=== PATIENT | male | born 1940 | race Caucasian/White ===

== ENCOUNTER 2019-07-09 18:00 | Inpatient (IN) | payer MEDICARE, MEDICAID ==
[~2019-07-09] VITALS: Ht 180.3 cm; Wt 89.9 kg
[~2019-07-09 18:00] MED LIST: BACL20TA PO; CALC-729 PO; CELE-193 PO; CHOL10002 PO; DOCU-148 PO; HYDR-3968 PO; MAGN500C16 PO; PHEN100C4 PO; PREG50CA PO
[2019-07-09] MEDS ORDERED: normal saline 1000ML IV soln IVB ONE (18:20)
[2019-07-09] MEDS ORDERED: magnesium 2GM in 50ml NS 50 ML IV ONE (18:25)
[2019-07-09] MEDS ORDERED: diltiazem 5mg/ml 5ml inj. IV ONE ×2 (18:25→18:50)
[2019-07-09 18:30] LABS: BASOPHILS % (AUTO) 0.1 % (0-1); EOSINOPHILS % (AUTO) 0 % (0-6); HEMATOCRIT 29.3 % (42.0-52.0); HEMOGLOBIN 9.4 g/dl (14.0-17.9); LYMPHOCYTES # (AUTO) 0.7 X10'3 (1.1-4.8); LYMPHOCYTES % (AUTO) 6.2 % (21-51); MEAN CORPUSCULAR HEMOGLOBIN 27.4 PG (27.0-31.0); MEAN CORPUSCULAR HGB CONC 32.2 g/dL (33.0-36.5); MEAN CORPUSCULAR VOLUME 85.2 FL (78-98); MEAN PLATELET VOLUME 7.3 FL (7.4-10.4); MONOCYTES # (AUTO) 0.4 X10'3 (0-0.9); NEUTROPHILS % (AUTO) 89.7 % (42-75); PLATELET COUNT 224 X10'3 (140-440); RED BLOOD COUNT 3.43 X10'6 (4.70-6.10); RED CELL DISTRIBUTION WIDTH 19.2 % (11.5-14.5); WHITE BLOOD COUNT 11.2 X10'3 (4.5-11.0)
[2019-07-09 18:37] LABS: PARTIAL THROMBOPLASTIN TIME 28 SECONDS (22-32)
[2019-07-09 18:43] LABS: ALANINE AMINOTRANSFERASE 34 U/L (12-78); ALBUMIN 2.8 G/DL (3.4-5.0); ALBUMIN/GLOBULIN RATIO 0.8 (1.1-1.5); ANION GAP 19 (8-16); ASPARTATE AMINO TRANSFERASE 51 U/L (10-37); BILIRUBIN,TOTAL 0.4 MG/DL (0.1-1.0); BLOOD UREA NITROGEN 16 MG/DL (7-18); BUN/CREATININE RATIO 7.4 (5.4-32.0); CALCIUM 7.6 MG/DL (8.5-10.1); CHLORIDE 104 MMOL/L (99-107); CREATININE 2.15 MG/DL (0.60-1.10); GLUCOSE 293 MG/DL (70-104); SODIUM 138 MMOL/L (135-145); TOTAL PROTEIN 6.4 G/DL (6.4-8.2); eGFR 30 ML/MIN
[2019-07-09 18:49] LABS: POTASSIUM 4.4 MMOL/L (3.5-5.1)
[2019-07-09 18:54] LABS: ALKALINE PHOSPHATASE 63 IU/L (46-116)
--- NOTE | 2019-07-09 18:54 | NUR ---
Repeat EKG performed to attempt to determine patient's rhythm. Spoke to Dr. Martinez who orders additional cardizem for the patient.
[2019-07-09 19:10] LABS: MAGNESIUM 1.9 MG/DL (1.5-2.4); PHOSPHORUS 4.3 MG/DL (2.3-4.5)
--- NOTE | 2019-07-09 19:17 | NUR ---
pt to ct
--- NOTE | 2019-07-09 19:25 | NUR ---
NOTIFIED [facility] OF BLADDER TEMP AT 102
[2019-07-09 19:27] LABS: UA COLLECTION TYPE OTHER
[2019-07-09 19:28] LABS: CLARITY,URINE CLEAR (Clear); COLOR,URINE YELLOW (Yellow); GLUCOSE, URINE 250 mg/dl (Neg); KETONES,URINE NEGATIVE (Neg); LEUKOCYTE ESTERASE ,URINE NEGATIVE (Neg); NITRITES, URINE NEGATIVE (Neg); OCCULT BLOOD,URINE MODERATE (Neg); PROTEIN,URINE 30 mg/dl (Neg); UROBILINOGEN,URINE 0.2 E.U/dL (0.2-1.0)
[2019-07-09 19:35] LABS: BACTERIA,URINE NONE SEEN /HPF (Neg); RBC,URINE 0-2 /HPF (0-2); WBC,URINE 0-4 /HPF (0-4)
[2019-07-09 19:36] LABS: CELLULAR CAST 0-4 /LPF (NEGATIVE); FINE GRANULAR CAST 0-3 /LPF (NEGATIVE); MUCUS STRANDS NONE SEEN /LPF (Neg); SQUAMOUS EPITHELIAL CELL,UR NONE SEEN /LPF (FEW)
[2019-07-09] MEDS ORDERED: vancomycin/NS 1 GM ADD-VANTAGE 250 ML IV ONE (19:45)
[2019-07-09] MEDS ORDERED: piperacillin/tazo 3.375gm/50ml 50 ML IV ONE (19:45)
--- NOTE | 2019-07-09 19:48 | NUR ---
Spoke to Dr. Martinez regarding newly discovered bladder temperature. 650 rectal tylenol ordered.
[2019-07-09] MEDS ORDERED: acetaminophen 325mg rectal suppository RC ONE (19:50)
[2019-07-09] MEDS ORDERED: acetaminophen 650mg rectal suppository RC ONE (20:05)
--- NOTE | 2019-07-09 20:31 | NUR ---
BLOOD CONSENT FORM SIGNED BY PT AND PLACED ON CHART, O[facility]FS ELECTRONIC CONSENT SIGNED.
[2019-07-09] MEDS ORDERED: potassium Cl 20mEq/100mL bag 100 ML IV PRN ×2 (20:35)
[2019-07-09] MEDS ORDERED: acetaminophen 650mg rectal suppository RC PRN (20:35)
[2019-07-09] MEDS ORDERED: tranexamic acid inj. 1,000 MG in normal saline 100ml IV soln 100 ML IV ONE (20:35)
[2019-07-09] MEDS ORDERED: ondansetron/PF 4mg/2ml inj IV PRN (20:35)
[2019-07-09] MEDS: normal saline 1000ml 1,000 ML IV SCH (21:00)
[2019-07-09 21:08] LABS: HEMATOCRIT 26.7 % (42.0-52.0); HEMOGLOBIN 8.8 g/dl (14.0-17.9); MEAN CORPUSCULAR HEMOGLOBIN 27.4 PG (27.0-31.0); MEAN CORPUSCULAR VOLUME 82.8 FL (78-98); MEAN PLATELET VOLUME 6.8 FL (7.4-10.4); PLATELET COUNT 184 X10'3 (140-440); RED BLOOD COUNT 3.22 X10'6 (4.70-6.10); RED CELL DISTRIBUTION WIDTH 18.9 % (11.5-14.5); WHITE BLOOD COUNT 9.3 X10'3 (4.5-11.0)
[2019-07-09 21:12] LABS: ALANINE AMINOTRANSFERASE 43 U/L (12-78); ALBUMIN 2.7 G/DL (3.4-5.0); ALBUMIN/GLOBULIN RATIO 0.8 (1.1-1.5); ALKALINE PHOSPHATASE 63 IU/L (46-116); ANION GAP 16 (8-16); ASPARTATE AMINO TRANSFERASE 58 U/L (10-37); BILIRUBIN,TOTAL 0.5 MG/DL (0.1-1.0); BLOOD UREA NITROGEN 17 MG/DL (7-18); BUN/CREATININE RATIO 8.9 (5.4-32.0); CALCIUM 7.2 MG/DL (8.5-10.1); CHLORIDE 109 MMOL/L (99-107); CREATININE 1.92 MG/DL (0.60-1.10); GLUCOSE 192 MG/DL (70-104); POTASSIUM 3.9 MMOL/L (3.5-5.1); SODIUM 140 MMOL/L (135-145); TOTAL CARBON DIOXIDE 15.3 MMOL/L (24-32); TOTAL PROTEIN 6.1 G/DL (6.4-8.2); eGFR 34 ML/MIN
--- NOTE | 2019-07-09 21:20 | NUR ---
Patient in room CICU 2013. I have received report from ER and had the opportunity to ask questions and assume patient care. Awaiting patient arrival.
[2019-07-09 21:25] VITALS: BP 118/65
--- NOTE | 2019-07-09 21:25 | NUR ---
Pt arrived from ER via gurney to ICU room 2013 awake & alert. On Oxygen at 4L. Right IJ quad lumen central line with vanco infusing & NS TKO. 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
[2019-07-09 21:30] VITALS: BP 126/63
[2019-07-09 21:45] VITALS: BP 134/66
[2019-07-09 22:00] VITALS: BP 103/51
[2019-07-09] MEDS ORDERED: normal saline 1000ml 1,000 ML IVB ONE (22:10)
[2019-07-09] MEDS ORDERED: normal saline 1000ml 1,000 ML IV PRN (22:11)
[2019-07-09 22:15] VITALS: BP 101/56
[2019-07-09 22:30] VITALS: BP 131/69
--- NOTE | 2019-07-09 22:30 | NUR ---
Blood transfusion started UNIT # [id number] B positive.
--- NOTE | 2019-07-09 22:42 | NUR ---
Pt placed on transport monitor & taken to interventional radiology.
[2019-07-09] MEDS ORDERED: fentaNYL/PF 50MCG/1 ML 2ML syringe ONE ×2 (22:57→23:44)
[2019-07-09] MEDS ORDERED: midazolam 2 mg/2 ml injection ONE ×2 (22:57→23:44)
[2019-07-09] MEDS ORDERED: LIDOcaine 1%/PF 5ML 10 MG/ML VIAL ONE (22:57)
[2019-07-09] MEDS ORDERED: heparin 1,000 UNITS/NS 500ml 500 ML ONE (22:57)
[2019-07-09] MEDS ORDERED: iohexol 300mg/ml 100ml inj. ONE (22:58)
[2019-07-10] VITALS (29 sets, daily range): BP systolic 125–175; BP diastolic 61–91
[2019-07-10] MEDS ORDERED: heparin 1,000 UNITS/NS 500ml 500 ML ONE (00:05)
[2019-07-10] MEDS ORDERED: fentaNYL/PF 50MCG/1 ML 2ML syringe ONE (00:19)
[2019-07-10] MEDS ORDERED: midazolam 2 mg/2 ml injection ONE (00:19)
--- NOTE | 2019-07-10 01:02 | NUR ---
Pt back from Interventional radiology. Right groin dressing is clean & dry.
[2019-07-10] MEDS: HYDROmorphone 1 mg/ml syringe IV PRN ×5 (01:19→23:09)
[2019-07-10] MEDS: normal saline 1000ml 1,000 ML IV SCH ×2 (01:24→09:03)
[2019-07-10 01:27] LABS: HEMATOCRIT 29.5 % (42.0-52.0); HEMOGLOBIN 9.9 g/dl (14.0-17.9); MEAN CORPUSCULAR HEMOGLOBIN 28.3 PG (27.0-31.0); MEAN CORPUSCULAR HGB CONC 33.4 g/dL (33.0-36.5); MEAN CORPUSCULAR VOLUME 84.7 FL (78-98); MEAN PLATELET VOLUME 6.9 FL (7.4-10.4); PLATELET COUNT 162 X10'3 (140-440); RED BLOOD COUNT 3.49 X10'6 (4.70-6.10); RED CELL DISTRIBUTION WIDTH 18.5 % (11.5-14.5); WHITE BLOOD COUNT 8.8 X10'3 (4.5-11.0)
[2019-07-10 01:31] LABS: OXYGEN SATURATION (MIXED VEN) 71.4 % (60-80); PO2 MIXED VENOUS (TEMP COR) 39.2 mmHg (35-46)
[2019-07-10 01:34] LABS: PARTIAL THROMBOPLASTIN TIME 33 SECONDS (22-32)
[2019-07-10] MEDS ORDERED: HYDROmorphone inj. 0.5 MG/0.5 ML DISP.SYRIN IV ONE (02:00)
[2019-07-10] MEDS ORDERED: HYDROmorphone 1 mg/ml syringe IV PRN ×3 (02:00→07:00)
[2019-07-10] MEDS ORDERED: HYDROmorphone inj. 0.5 MG/0.5 ML DISP.SYRIN IV PRN (02:35)
[2019-07-10 03:48] LABS: BASOPHILS % (AUTO) 0.1 % (0-1); EOSINOPHILS % (AUTO) 0 % (0-6); HEMATOCRIT 28.8 % (42.0-52.0); HEMOGLOBIN 9.5 g/dl (14.0-17.9); LYMPHOCYTES # (AUTO) 0.7 X10'3 (1.1-4.8); LYMPHOCYTES % (AUTO) 7.6 % (21-51); MEAN CORPUSCULAR HEMOGLOBIN 27.7 PG (27.0-31.0); MEAN CORPUSCULAR HGB CONC 32.8 g/dL (33.0-36.5); MEAN CORPUSCULAR VOLUME 84.6 FL (78-98); MEAN PLATELET VOLUME 7.2 FL (7.4-10.4); MONOCYTES # (AUTO) 0.5 X10'3 (0-0.9); MONOCYTES % (AUTO) 5.5 % (2-12); NEUTROPHILS # (AUTO) 7.6 X10'3 (1.8-7.7); NEUTROPHILS % (AUTO) 86.8 % (42-75); PLATELET COUNT 151 X10'3 (140-440); RED BLOOD COUNT 3.41 X10'6 (4.70-6.10); RED CELL DISTRIBUTION WIDTH 18.6 % (11.5-14.5); WHITE BLOOD COUNT 8.8 X10'3 (4.5-11.0)
[2019-07-10 04:00] LABS: ALANINE AMINOTRANSFERASE 98 U/L (12-78); ALBUMIN 2.6 G/DL (3.4-5.0); ALBUMIN/GLOBULIN RATIO 0.8 (1.1-1.5); ALKALINE PHOSPHATASE 55 IU/L (46-116); ANION GAP 12 (8-16); ASPARTATE AMINO TRANSFERASE 162 U/L (10-37); BILIRUBIN,TOTAL 0.7 MG/DL (0.1-1.0); BLOOD UREA NITROGEN 23 MG/DL (7-18); BUN/CREATININE RATIO 11.3 (5.4-32.0); CALCIUM 7.1 MG/DL (8.5-10.1); CHLORIDE 110 MMOL/L (99-107); CREATININE 2.04 MG/DL (0.60-1.10); GLUCOSE 146 MG/DL (70-104); MAGNESIUM 2.2 MG/DL (1.5-2.4); PHENYTOIN (DILANTIN) 7.6 UG/ML (10.0-20.0); PHOSPHORUS 5.1 MG/DL (2.3-4.5); POTASSIUM 4.5 MMOL/L (3.5-5.1); SODIUM 140 MMOL/L (135-145); TOTAL CARBON DIOXIDE 18.2 MMOL/L (24-32); TOTAL PROTEIN 5.9 G/DL (6.4-8.2); eGFR 32 ML/MIN
[2019-07-10 04:09] LABS: PARTIAL THROMBOPLASTIN TIME 32 SECONDS (22-32)
[2019-07-10 04:26] LABS: UA EOSINOPHILS NO EOS /HPF
[2019-07-10] MEDS: piperacillin/tazo 3.375gm/50ml 50 ML IV SCH ×3 (05:45→08:52)
[2019-07-10] MEDS ORDERED: vancomycin/NS 500MG ADD-VANT 100 ML IV ONE (05:45)
[2019-07-10] MEDS ORDERED: PREG150C PO (06:21)
--- NOTE | 2019-07-10 06:45 | NUR ---
Problems reprioritized. Patient report given, questions answered & plan of care reviewed with Chandu ODOM.
--- NOTE | 2019-07-10 06:57 | NUR ---
Patient in room CICU 2013. I have received report from Cindy ODOM and had the opportunity to ask questions and assume patient care.
[2019-07-10] MEDS ORDERED: diatr meglu/diatrizoate 30ml oral sol.-(3 dose) bottle PO ONE (08:00)
[2019-07-10] MEDS: ESOMEPRAZOLE 40 MG VIAL IV SCH (08:43)
[2019-07-10] MEDS: cefazolin/dext.iso 2gm/100ml 100 ML IV SCH (12:11)
[2019-07-10 15:07] LABS: HEMATOCRIT 26.8 % (42.0-52.0); HEMOGLOBIN 8.9 g/dl (14.0-17.9); MEAN CORPUSCULAR HEMOGLOBIN 28.1 PG (27.0-31.0); MEAN CORPUSCULAR HGB CONC 33.2 g/dL (33.0-36.5); MEAN CORPUSCULAR VOLUME 84.5 FL (78-98); MEAN PLATELET VOLUME 7.3 FL (7.4-10.4); PLATELET COUNT 137 X10'3 (140-440); RED BLOOD COUNT 3.17 X10'6 (4.70-6.10); RED CELL DISTRIBUTION WIDTH 18.7 % (11.5-14.5); WHITE BLOOD COUNT 6.5 X10'3 (4.5-11.0)
--- NOTE | 2019-07-10 18:34 | NUR ---
Problems reprioritized. Patient report given, questions answered & plan of care reviewed with Enrique ODOM.
--- NOTE | 2019-07-10 18:43 | NUR ---
recieved report from ruthie ODOM no questions or concerns after receiving SBAR
[2019-07-10] MEDS ORDERED: non-formulary drug (Pregabalin (Lyrica) 1 CAP) PO SCH (20:00)
[2019-07-10] MEDS: phenytoin sod ER 100mg capsule PO SCH (20:46)
[2019-07-10] MEDS: lactobacillus rhamnosus 10,000 MMU CELLS/CAPSULE PO SCH (20:46)
[2019-07-10] MEDS: vancomycin inj 1,250 MG in normal saline 250ml IV soln 250 ML IV SCH (21:21)
--- NOTE | 2019-07-10 23:22 | NUR ---
patient in bed eyes closed rr even un labored no observable s/s of acute stress at this time, patient verbalized lower chronic back pain 8/10 on numerical scale administered pain medication will re assess in 1 hr
[2019-07-11] VITALS (24 sets, daily range): BP systolic 129–171; BP diastolic 45–88
[2019-07-11] MEDS: cefazolin/dext.iso 2gm/100ml 100 ML IV SCH ×3 (00:22→23:55)
--- NOTE | 2019-07-11 02:00 | NUR ---
PATIENT IN BED EYES CLOSED RR EVEN UN LABORED NO OBSERVABLE S/S OF ACUTE STRESS AT THIS TIME
[2019-07-11 03:31] LABS: BASOPHILS % (AUTO) 0.2 % (0-1); EOSINOPHILS % (AUTO) 0.1 % (0-6); HEMATOCRIT 23.1 % (42.0-52.0); HEMOGLOBIN 7.8 g/dl (14.0-17.9); LYMPHOCYTES # (AUTO) 0.9 X10'3 (1.1-4.8); LYMPHOCYTES % (AUTO) 15.9 % (21-51); MEAN CORPUSCULAR HEMOGLOBIN 28.4 PG (27.0-31.0); MEAN CORPUSCULAR HGB CONC 33.6 g/dL (33.0-36.5); MEAN CORPUSCULAR VOLUME 84.5 FL (78-98); MEAN PLATELET VOLUME 7.8 FL (7.4-10.4); MONOCYTES # (AUTO) 0.6 X10'3 (0-0.9); MONOCYTES % (AUTO) 10.8 % (2-12); PLATELET COUNT 128 X10'3 (140-440); RED BLOOD COUNT 2.73 X10'6 (4.70-6.10); RED CELL DISTRIBUTION WIDTH 18.5 % (11.5-14.5); WHITE BLOOD COUNT 5.5 X10'3 (4.5-11.0)
[2019-07-11 03:47] LABS: ALANINE AMINOTRANSFERASE 627 U/L (12-78); ALBUMIN 2.5 G/DL (3.4-5.0); ALBUMIN/GLOBULIN RATIO 0.8 (1.1-1.5); ALKALINE PHOSPHATASE 49 IU/L (46-116); ANION GAP 10 (8-16); ASPARTATE AMINO TRANSFERASE 660 U/L (10-37); BILIRUBIN,TOTAL 0.3 MG/DL (0.1-1.0); BLOOD UREA NITROGEN 25 MG/DL (7-18); BUN/CREATININE RATIO 15.3 (5.4-32.0); CALCIUM 7.4 MG/DL (8.5-10.1); CHLORIDE 113 MMOL/L (99-107); CREATININE 1.63 MG/DL (0.60-1.10); GLUCOSE 111 MG/DL (70-104); MAGNESIUM 2.2 MG/DL (1.5-2.4); POTASSIUM 3.9 MMOL/L (3.5-5.1); SODIUM 142 MMOL/L (135-145); TOTAL CARBON DIOXIDE 18.9 MMOL/L (24-32); TOTAL PROTEIN 5.8 G/DL (6.4-8.2); eGFR 41 ML/MIN
[2019-07-11 03:48] LABS: PARTIAL THROMBOPLASTIN TIME 30 SECONDS (22-32)
--- NOTE | 2019-07-11 04:00 | NUR ---
PATIENT IN BED COVERS ON EYES CLOSED BLANKETS ON RR EVEN UN LABORED NO OBSERVABLE S/S OF ACUTE STRESS AT THIS TIME
[2019-07-11] MEDS: normal saline 1000ml 1,000 ML IV SCH ×3 (04:57→22:31)
[2019-07-11] MEDS: HYDROmorphone 1 mg/ml syringe IV PRN ×3 (04:58→23:56)
--- NOTE | 2019-07-11 06:24 | NUR ---
SBAR TO PUHSPA NO QUESTIONS OR CONCERNS AFTER SBAR
--- NOTE | 2019-07-11 06:30 | NUR ---
Patient in room CICU 2013. I have received report from ILENE Nunez and had the opportunity to ask questions and assume patient care.
[2019-07-11] MEDS: lactobacillus rhamnosus 10,000 MMU CELLS/CAPSULE PO SCH ×2 (07:59→19:49)
[2019-07-11] MEDS: pregabalin 75mg capsule PO SCH ×2 (07:59→19:49)
[2019-07-11] MEDS: phenytoin sod ER 100mg capsule PO SCH ×2 (07:59→19:49)
[2019-07-11] MEDS: ESOMEPRAZOLE 40 MG VIAL IV SCH (08:00)
[2019-07-11 12:23] LABS: HEMATOCRIT 23.4 % (42.0-52.0); HEMOGLOBIN 7.9 g/dl (14.0-17.9); MEAN CORPUSCULAR HEMOGLOBIN 28.1 PG (27.0-31.0); MEAN CORPUSCULAR HGB CONC 33.7 g/dL (33.0-36.5); MEAN CORPUSCULAR VOLUME 83.6 FL (78-98); MEAN PLATELET VOLUME 7.3 FL (7.4-10.4); PLATELET COUNT 144 X10'3 (140-440); RED CELL DISTRIBUTION WIDTH 19.2 % (11.5-14.5); WHITE BLOOD COUNT 5.8 X10'3 (4.5-11.0)
--- NOTE | 2019-07-11 13:28 | NUR ---
Per Dr. Bradford, okay to get pt out of bed and to work with PT
--- NOTE | 2019-07-11 18:22 | NUR ---
Problems reprioritized. Patient report given, questions answered & plan of care reviewed with ILENE Nunez.
--- NOTE | 2019-07-11 18:50 | NUR ---
assumed care from jeri ODOM no questions or concerns after SBAR
--- NOTE | 2019-07-11 20:00 | NUR ---
patient in bed talking with staff appears to be in a good mood, rr even un labored no observable s/s of acute stress at this time
[2019-07-11] MEDS ORDERED: bisacodyl 10mg suppository rectal RC PRN (20:35)
[2019-07-11] MEDS: vancomycin inj 1,250 MG in normal saline 250ml IV soln 250 ML IV SCH (20:51)
--- NOTE | 2019-07-11 23:38 | NUR ---
patient in bed eyes closed covers on rr even un labored no observable s/s of acute stress at this time
[2019-07-12] VITALS (18 sets, daily range): BP systolic 121–155; BP diastolic 50–77
--- NOTE | 2019-07-12 02:00 | NUR ---
patient in bed covers on eyes closed rr even un labored no s/s of acute stress at this time
--- NOTE | 2019-07-12 04:50 | NUR ---
patient currently in bed eyes closed covers on rr even un labored no observable s/s of acute stress at this time
[2019-07-12 05:47] LABS: BASOPHILS % (AUTO) 0.3 % (0-1); EOSINOPHILS % (AUTO) 0.2 % (0-6); HEMATOCRIT 22.6 % (42.0-52.0); HEMOGLOBIN 7.5 g/dl (14.0-17.9); LYMPHOCYTES % (AUTO) 16.7 % (21-51); MEAN CORPUSCULAR HEMOGLOBIN 28.1 PG (27.0-31.0); MEAN CORPUSCULAR HGB CONC 33.3 g/dL (33.0-36.5); MEAN CORPUSCULAR VOLUME 84.4 FL (78-98); MEAN PLATELET VOLUME 7.6 FL (7.4-10.4); MONOCYTES # (AUTO) 0.7 X10'3 (0-0.9); MONOCYTES % (AUTO) 12.2 % (2-12); NEUTROPHILS # (AUTO) 4.1 X10'3 (1.8-7.7); NEUTROPHILS % (AUTO) 70.6 % (42-75); PLATELET COUNT 139 X10'3 (140-440); RED BLOOD COUNT 2.68 X10'6 (4.70-6.10); RED CELL DISTRIBUTION WIDTH 18.6 % (11.5-14.5); WHITE BLOOD COUNT 5.8 X10'3 (4.5-11.0)
[2019-07-12 06:03] LABS: ALANINE AMINOTRANSFERASE 264 U/L (12-78); ALBUMIN 2.4 G/DL (3.4-5.0); ALBUMIN/GLOBULIN RATIO 0.7 (1.1-1.5); ALKALINE PHOSPHATASE 60 IU/L (46-116); ANION GAP 11 (8-16); ASPARTATE AMINO TRANSFERASE 153 U/L (10-37); BILIRUBIN,TOTAL 0.5 MG/DL (0.1-1.0); BLOOD UREA NITROGEN 21 MG/DL (7-18); BUN/CREATININE RATIO 16.4 (5.4-32.0); CALCIUM 7.6 MG/DL (8.5-10.1); CHLORIDE 113 MMOL/L (99-107); CREATININE 1.28 MG/DL (0.60-1.10); GLUCOSE 99 MG/DL (70-104); MAGNESIUM 1.9 MG/DL (1.5-2.4); PHOSPHORUS 2.5 MG/DL (2.3-4.5); POTASSIUM 3.5 MMOL/L (3.5-5.1); SODIUM 143 MMOL/L (135-145); TOTAL CARBON DIOXIDE 18.8 MMOL/L (24-32); TOTAL PROTEIN 5.7 G/DL (6.4-8.2); eGFR 54 ML/MIN
--- NOTE | 2019-07-12 06:13 | NUR ---
sbar kelley Toledo RN no questions or concerns after assuming care of patient
[2019-07-12 06:23] LABS: PARTIAL THROMBOPLASTIN TIME 28 SECONDS (22-32)
--- NOTE | 2019-07-12 06:31 | NUR ---
Patient in room CICU 2013. I have received report from ILENE Nunez and had the opportunity to ask questions and assume patient care.
[2019-07-12 06:56] LABS: ANISOCYTOSIS 2+; PLATELET ESTIMATE DECREASED
[2019-07-12] MEDS: lactobacillus rhamnosus 10,000 MMU CELLS/CAPSULE PO SCH ×2 (07:08→19:47)
[2019-07-12] MEDS: pregabalin 75mg capsule PO SCH ×2 (07:08→19:48)
[2019-07-12] MEDS: phenytoin sod ER 100mg capsule PO SCH ×2 (07:08→19:47)
[2019-07-12] MEDS: ESOMEPRAZOLE 40 MG VIAL IV SCH (07:08)
[2019-07-12] MEDS: normal saline 1000ml 1,000 ML IV SCH (08:31)
[2019-07-12] MEDS: HYDROmorphone 1 mg/ml syringe IV PRN ×2 (10:21→19:50)
[2019-07-12] MEDS: cefazolin/dext.iso 2gm/100ml 100 ML IV SCH (12:00)
--- NOTE | 2019-07-12 14:46 | NUR ---
RECEIVED REPORT AND PATIENT FROM ICU TO ROOM 314. HOB DENIES PAIN ,SOB, AND , OR NAUSEA AT THIS TIME.HEART RHYTHM SR, NO ECTOPY.CALL LIGHT IN REACH. Addendum: 07/12/19 at 1448 by Em Driscoll RN Amended: Links added.
--- NOTE | 2019-07-12 14:49 | NUR ---
Report given to ILENE Correia. Pt alert, oriented, and stable for transfer. Has no complaints at this time. Transferred via wheelchair to ACCE and hooked up to ACCE monitor. Pt ambulated to bed. States he thinks neighbor may have brought him his teeth from home but he is not sure. Searched room and found no belongings. Pt aware.
--- NOTE | 2019-07-12 18:15 | NUR ---
Patient in room MED 314. I have received report from Mian Guzman RN and had the opportunity to ask questions and assume patient care.
[2019-07-12] MEDS ORDERED: VANCOMYCIN LEVEL IV ONE (20:30)
[2019-07-13] MEDS: cefazolin/dext.iso 2gm/100ml 100 ML IV SCH ×3 (00:25→23:51)
[2019-07-13] MEDS: HYDROmorphone 1 mg/ml syringe IV PRN ×6 (00:36→23:52)
[2019-07-13 02:00] VITALS: BP 146/70
[2019-07-13 06:00] VITALS: BP 138/60
--- NOTE | 2019-07-13 06:15 | NUR ---
Patient in room MED 314. I have received report from SHAILESH ODOM and had the opportunity to ask questions and assume patient care.
--- NOTE | 2019-07-13 06:28 | NUR ---
Problems reprioritized. Patient report given, questions answered & plan of care reviewed with ILENE Damon.
[2019-07-13 07:09] LABS: BASOPHILS % (AUTO) 0.3 % (0-1); EOSINOPHILS # (AUTO) 0.1 X10'3 (0-0.9); EOSINOPHILS % (AUTO) 0.7 % (0-6); HEMATOCRIT 23.8 % (42.0-52.0); HEMOGLOBIN 7.9 g/dl (14.0-17.9); LYMPHOCYTES # (AUTO) 1.4 X10'3 (1.1-4.8); LYMPHOCYTES % (AUTO) 19.1 % (21-51); MEAN CORPUSCULAR HEMOGLOBIN 28.1 PG (27.0-31.0); MEAN CORPUSCULAR HGB CONC 33.3 g/dL (33.0-36.5); MEAN CORPUSCULAR VOLUME 84.4 FL (78-98); MEAN PLATELET VOLUME 7.9 FL (7.4-10.4); MONOCYTES % (AUTO) 12.8 % (2-12); NEUTROPHILS % (AUTO) 67.1 % (42-75); PLATELET COUNT 195 X10'3 (140-440); RED BLOOD COUNT 2.82 X10'6 (4.70-6.10); RED CELL DISTRIBUTION WIDTH 18.7 % (11.5-14.5); WHITE BLOOD COUNT 7.4 X10'3 (4.5-11.0)
[2019-07-13 07:30] LABS: ALANINE AMINOTRANSFERASE 160 U/L (12-78); ALBUMIN 2.7 G/DL (3.4-5.0); ALBUMIN/GLOBULIN RATIO 0.7 (1.1-1.5); ALKALINE PHOSPHATASE 88 IU/L (46-116); ANION GAP 13 (8-16); ASPARTATE AMINO TRANSFERASE 87 U/L (10-37); BILIRUBIN,TOTAL 0.7 MG/DL (0.1-1.0); BLOOD UREA NITROGEN 19 MG/DL (7-18); BUN/CREATININE RATIO 15.1 (5.4-32.0); CALCIUM 7.9 MG/DL (8.5-10.1); CHLORIDE 111 MMOL/L (99-107); CREATININE 1.26 MG/DL (0.60-1.10); GLUCOSE 89 MG/DL (70-104); PHOSPHORUS 2.6 MG/DL (2.3-4.5); POTASSIUM 3.2 MMOL/L (3.5-5.1); SODIUM 143 MMOL/L (135-145); TOTAL CARBON DIOXIDE 18.9 MMOL/L (24-32); TOTAL PROTEIN 6.4 G/DL (6.4-8.2); eGFR 55 ML/MIN
[2019-07-13] MEDS ORDERED: potassium Cl 20 mEq SR tablet PO PRN (07:40)
[2019-07-13 07:43] LABS: ANISOCYTOSIS 3+; MICROCYTOSIS 1+; PLATELET ESTIMATE NORMAL
[2019-07-13 07:44] LABS: POIKILOCYTOSIS FEW; POLYCHROMASIA FEW
[2019-07-13] MEDS ORDERED: pantoprazole 40 MG vial IV SCH (08:00)
[2019-07-13] MEDS: phenytoin sod ER 100mg capsule PO SCH ×2 (08:10→19:22)
[2019-07-13] MEDS: pregabalin 75mg capsule PO SCH ×2 (08:10→19:22)
[2019-07-13] MEDS: lactobacillus rhamnosus 10,000 MMU CELLS/CAPSULE PO SCH ×2 (08:10→19:20)
[2019-07-13] MEDS: potassium Cl 20 mEq SR tablet PO PRN ×3 (08:11→16:30)
--- NOTE | 2019-07-13 08:46 | NUR ---
PATIENT DESATING TO 85-88%, PLACED ON 1L O2 NC. WILL CONTINUE TO MONITOR.
[2019-07-13 11:15] VITALS: BP 133/69
--- NOTE | 2019-07-13 12:30 | NUR ---
Problems reprioritized. Patient report given, questions answered & plan of care reviewed with NANCI ODOM.
--- NOTE | 2019-07-13 12:34 | NUR ---
Patient in room MED 314. I have received report from ILENE TENORIO and had the opportunity to ask questions and assume patient care. Addendum: 07/13/19 at 1355 by Shannan Hines RN AGREE WITH MALU ODOMCLUTCH INSPECTOR
[2019-07-13 15:01] VITALS: BP 120/62
[2019-07-13 18:00] VITALS: BP 133/73
--- NOTE | 2019-07-13 18:18 | NUR ---
Problems reprioritized. Patient report given, questions answered & plan of care reviewed with ILENE NOGUEIRA.
[2019-07-13 22:00] VITALS: BP 147/69
[2019-07-14 03:08] VITALS: BP 149/85
[2019-07-14 06:00] VITALS: BP 144/85
[2019-07-14 06:12] LABS: BASOPHILS % (AUTO) 0.2 % (0-1); EOSINOPHILS # (AUTO) 0.1 X10'3 (0-0.9); EOSINOPHILS % (AUTO) 1.5 % (0-6); HEMATOCRIT 26.2 % (42.0-52.0); HEMOGLOBIN 8.9 g/dl (14.0-17.9); LYMPHOCYTES # (AUTO) 1.4 X10'3 (1.1-4.8); LYMPHOCYTES % (AUTO) 18.3 % (21-51); MEAN CORPUSCULAR HEMOGLOBIN 28.5 PG (27.0-31.0); MEAN CORPUSCULAR HGB CONC 33.8 g/dL (33.0-36.5); MEAN CORPUSCULAR VOLUME 84.5 FL (78-98); MEAN PLATELET VOLUME 7.2 FL (7.4-10.4); MONOCYTES # (AUTO) 1.1 X10'3 (0-0.9); MONOCYTES % (AUTO) 14.6 % (2-12); NEUTROPHILS # (AUTO) 4.8 X10'3 (1.8-7.7); NEUTROPHILS % (AUTO) 65.4 % (42-75); PLATELET COUNT 250 X10'3 (140-440); RED BLOOD COUNT 3.11 X10'6 (4.70-6.10); RED CELL DISTRIBUTION WIDTH 18.8 % (11.5-14.5); WHITE BLOOD COUNT 7.4 X10'3 (4.5-11.0)
[2019-07-14 06:23] LABS: ALANINE AMINOTRANSFERASE 111 U/L (12-78); ALBUMIN 2.9 G/DL (3.4-5.0); ALBUMIN/GLOBULIN RATIO 0.7 (1.1-1.5); ALKALINE PHOSPHATASE 98 IU/L (46-116); ANION GAP 13 (8-16); ASPARTATE AMINO TRANSFERASE 59 U/L (10-37); BILIRUBIN,TOTAL 0.6 MG/DL (0.1-1.0); BLOOD UREA NITROGEN 15 MG/DL (7-18); BUN/CREATININE RATIO 12.8 (5.4-32.0); CALCIUM 8.4 MG/DL (8.5-10.1); CHLORIDE 109 MMOL/L (99-107); CREATININE 1.17 MG/DL (0.60-1.10); GLUCOSE 99 MG/DL (70-104); MAGNESIUM 1.9 MG/DL (1.5-2.4); PHOSPHORUS 2.7 MG/DL (2.3-4.5); POTASSIUM 3.6 MMOL/L (3.5-5.1); SODIUM 142 MMOL/L (135-145); TOTAL CARBON DIOXIDE 19.6 MMOL/L (24-32); TOTAL PROTEIN 6.9 G/DL (6.4-8.2); eGFR 60 ML/MIN
--- NOTE | 2019-07-14 06:25 | NUR ---
Patient in room MED 314. I have received report from Teresa ODOM and had the opportunity to ask questions and assume patient care.
[2019-07-14 07:24] LABS: ANISOCYTOSIS 2+; PLATELET ESTIMATE NORMAL
[2019-07-14 07:25] LABS: POLYCHROMASIA FEW
[2019-07-14 07:26] LABS: SCHISTOCYTES FEW
[2019-07-14] MEDS: lactobacillus rhamnosus 10,000 MMU CELLS/CAPSULE PO SCH ×2 (07:30→19:45)
[2019-07-14] MEDS: pregabalin 75mg capsule PO SCH ×2 (07:30→19:44)
[2019-07-14] MEDS: phenytoin sod ER 100mg capsule PO SCH ×2 (07:31→19:45)
[2019-07-14] MEDS: HYDROmorphone 1 mg/ml syringe IV PRN ×2 (07:33→12:58)
--- NOTE | 2019-07-14 10:00 | NUR ---
Student documentation and medication administration documentation: I have reviewed and agree with all interventions, assessments performed and documented by Shaka Serrano RN.
[2019-07-14 11:00] VITALS: BP 105/70
--- NOTE | 2019-07-14 12:29 | NUR ---
Initial: Pt admit w/ retroperitoneal hematoma hx falls at home. Also noted MSSA bacteremia per MD note. Pt s/p embolization of gastroduodenal artery w/ no bleeding found. Pt PO 25-50% avg but fluctuates to refusing/0% meals. Pt seen by WILLEM and reports didnt have dentures until yesterday which has now healped PO but still low appetite which is not baseline. Pt was agreeable to vanilla ensure pudding BIDLD; milk, potato salad, and egg salad sandwich for lunch today. Dietary notified. Will continue to monitor for additional protein needs. Rec: 1. continue regular diet 2. monitor for additional ONS preferences 3. vanilla ensure pudding BIDLD 4. weekly wts Addendum: 07/14/19 at [address] Amended: Links added.
[2019-07-14] MEDS: cefazolin/dext.iso 2gm/100ml 100 ML IV SCH ×2 (12:56→23:08)
[2019-07-14 15:00] VITALS: BP 141/71
[2019-07-14 18:00] VITALS: BP 163/79
--- NOTE | 2019-07-14 18:15 | NUR ---
Patient in room MED 314. I have received report from ILENE Cardona and had the opportunity to ask questions and assume patient care.
--- NOTE | 2019-07-14 18:18 | NUR ---
Problems reprioritized. Patient report given, questions answered & plan of care reviewed with ILENE French.
[2019-07-14] MEDS ORDERED: HYDROcodone/acetaminophen 10/325mg tab PO PRN (18:40)
--- NOTE | 2019-07-14 18:45 | NUR ---
Called Dr. Stallings regarding switching from Dilaudid IV to PO pain medication. [place] 10/325mg was ordered and the IV pain medications were discontinued.
--- NOTE | 2019-07-14 22:00 | NUR ---
Pts was desating into the mid to low 80's. Put patient on 1.5L NC. Saturations came up to the mid to high 90's.
[2019-07-14 22:15] VITALS: BP 144/71
[2019-07-14] MEDS: HYDROcodone/acetaminophen 10/325mg tab PO PRN (23:08)
[2019-07-15 02:00] VITALS: BP 138/68
[2019-07-15] MEDS: HYDROcodone/acetaminophen 10/325mg tab PO PRN ×6 (03:09→23:51)
[2019-07-15 04:45] LABS: BASOPHILS % (AUTO) 0.5 % (0-1); EOSINOPHILS # (AUTO) 0.1 X10'3 (0-0.9); EOSINOPHILS % (AUTO) 1.7 % (0-6); HEMATOCRIT 23.8 % (42.0-52.0); HEMOGLOBIN 7.9 g/dl (14.0-17.9); LYMPHOCYTES # (AUTO) 1.3 X10'3 (1.1-4.8); LYMPHOCYTES % (AUTO) 18.2 % (21-51); MEAN CORPUSCULAR HEMOGLOBIN 28.3 PG (27.0-31.0); MEAN CORPUSCULAR HGB CONC 33.2 g/dL (33.0-36.5); MEAN CORPUSCULAR VOLUME 85.3 FL (78-98); MEAN PLATELET VOLUME 7.9 FL (7.4-10.4); MONOCYTES # (AUTO) 1.1 X10'3 (0-0.9); MONOCYTES % (AUTO) 15.3 % (2-12); NEUTROPHILS # (AUTO) 4.6 X10'3 (1.8-7.7); NEUTROPHILS % (AUTO) 64.3 % (42-75); PLATELET COUNT 296 X10'3 (140-440); RED BLOOD COUNT 2.79 X10'6 (4.70-6.10); RED CELL DISTRIBUTION WIDTH 18.6 % (11.5-14.5); WHITE BLOOD COUNT 7.1 X10'3 (4.5-11.0)
[2019-07-15 05:00] LABS: ALANINE AMINOTRANSFERASE 72 U/L (12-78); ALBUMIN 2.5 G/DL (3.4-5.0); ALBUMIN/GLOBULIN RATIO 0.7 (1.1-1.5); ALKALINE PHOSPHATASE 81 IU/L (46-116); ANION GAP 9 (8-16); ASPARTATE AMINO TRANSFERASE 41 U/L (10-37); BILIRUBIN,TOTAL 0.5 MG/DL (0.1-1.0); BLOOD UREA NITROGEN 16 MG/DL (7-18); BUN/CREATININE RATIO 12.7 (5.4-32.0); CALCIUM 8.2 MG/DL (8.5-10.1); CHLORIDE 111 MMOL/L (99-107); CREATININE 1.26 MG/DL (0.60-1.10); GLUCOSE 100 MG/DL (70-104); MAGNESIUM 1.9 MG/DL (1.5-2.4); PHOSPHORUS 3.1 MG/DL (2.3-4.5); POTASSIUM 3.6 MMOL/L (3.5-5.1); SODIUM 143 MMOL/L (135-145); TOTAL PROTEIN 6.1 G/DL (6.4-8.2); eGFR 55 ML/MIN
--- NOTE | 2019-07-15 05:44 | NUR ---
Orienteer documentation: I have reviewed and agree with all interventions, assessments performed and documented by Gillian White RN. Orienteer Medication Administration: For this medication-pass time frame, all medication were reviewed, dispensed, administered and documented per hospital policy by Gillian White RN.
--- NOTE | 2019-07-15 06:07 | NUR ---
Problems reprioritized. Patient report given, questions answered & plan of care reviewed with Dulce RN and ILENE Felix.
[2019-07-15 06:46] VITALS: BP 128/67
--- NOTE | 2019-07-15 06:55 | NUR ---
Patient in room MED 314. I have received report from ILENE French and had the opportunity to ask questions and assume patient care.
[2019-07-15] MEDS: pregabalin 75mg capsule PO SCH ×2 (07:11→19:38)
[2019-07-15] MEDS: phenytoin sod ER 100mg capsule PO SCH ×2 (07:11→19:37)
[2019-07-15] MEDS: lactobacillus rhamnosus 10,000 MMU CELLS/CAPSULE PO SCH ×2 (07:12→19:36)
[2019-07-15 07:16] LABS: TOTAL CELLS COUNTED 100
[2019-07-15 07:17] LABS: ANISOCYTOSIS 2+; HYPOCHROMASIA 1+; PLATELET ESTIMATE NORMAL
[2019-07-15 11:00] VITALS: BP 132/72
[2019-07-15] MEDS: cefazolin/dext.iso 2gm/100ml 100 ML IV SCH ×2 (11:34→23:50)
[2019-07-15 15:00] VITALS: BP 143/67
[2019-07-15] MEDS ORDERED: furosemide 20 MG/2 ML vial IV ONE (16:20)
[2019-07-15 18:00] VITALS: BP 130/83
--- NOTE | 2019-07-15 18:15 | NUR ---
Patient in room MED 314. I have received report from Isidro RN/Dulce RN (orienteer) and had the opportunity to ask questions and assume patient care.
--- NOTE | 2019-07-15 18:18 | NUR ---
Orienteer documentation: I have reviewed and agree with all interventions, assessments performed and documented by Maggie ODOM.
--- NOTE | 2019-07-15 18:26 | NUR ---
Problems reprioritized. Patient report given, questions answered & plan of care reviewed with Nanette ODOM and Iza ODOM.
[2019-07-15 22:00] VITALS: BP 122/68
[2019-07-16 02:00] VITALS: BP 150/67
[2019-07-16] MEDS: HYDROcodone/acetaminophen 10/325mg tab PO PRN ×3 (04:05→12:41)
[2019-07-16 06:00] VITALS: BP 130/82
[2019-07-16 06:04] LABS: BASOPHILS % (AUTO) 0.6 % (0-1); EOSINOPHILS # (AUTO) 0.2 X10'3 (0-0.9); EOSINOPHILS % (AUTO) 2.3 % (0-6); HEMATOCRIT 25.2 % (42.0-52.0); HEMOGLOBIN 8.4 g/dl (14.0-17.9); LYMPHOCYTES # (AUTO) 1.4 X10'3 (1.1-4.8); LYMPHOCYTES % (AUTO) 19.5 % (21-51); MEAN CORPUSCULAR HEMOGLOBIN 28.6 PG (27.0-31.0); MEAN CORPUSCULAR HGB CONC 33.5 g/dL (33.0-36.5); MEAN CORPUSCULAR VOLUME 85.3 FL (78-98); MEAN PLATELET VOLUME 7.5 FL (7.4-10.4); MONOCYTES # (AUTO) 1.2 X10'3 (0-0.9); MONOCYTES % (AUTO) 16.1 % (2-12); NEUTROPHILS # (AUTO) 4.6 X10'3 (1.8-7.7); NEUTROPHILS % (AUTO) 61.5 % (42-75); PLATELET COUNT 371 X10'3 (140-440); RED BLOOD COUNT 2.96 X10'6 (4.70-6.10); RED CELL DISTRIBUTION WIDTH 19.1 % (11.5-14.5); WHITE BLOOD COUNT 7.4 X10'3 (4.5-11.0)
--- NOTE | 2019-07-16 06:21 | NUR ---
Problems reprioritized. Patient report given, questions answered & plan of care reviewed with ILENE Wilcox.
[2019-07-16 06:50] LABS: ALANINE AMINOTRANSFERASE 52 U/L (12-78); ALBUMIN 2.7 G/DL (3.4-5.0); ALBUMIN/GLOBULIN RATIO 0.7 (1.1-1.5); ALKALINE PHOSPHATASE 81 IU/L (46-116); ANION GAP 13 (8-16); ASPARTATE AMINO TRANSFERASE 33 U/L (10-37); BILIRUBIN,TOTAL 0.5 MG/DL (0.1-1.0); BLOOD UREA NITROGEN 15 MG/DL (7-18); BUN/CREATININE RATIO 11.5 (5.4-32.0); CALCIUM 8.1 MG/DL (8.5-10.1); CHLORIDE 108 MMOL/L (99-107); GLUCOSE 105 MG/DL (70-104); PHOSPHORUS 3.2 MG/DL (2.3-4.5); POTASSIUM 3.5 MMOL/L (3.5-5.1); SODIUM 143 MMOL/L (135-145); TOTAL CARBON DIOXIDE 22.1 MMOL/L (24-32); TOTAL PROTEIN 6.4 G/DL (6.4-8.2); eGFR 53 ML/MIN
--- NOTE | 2019-07-16 06:53 | NUR ---
Patient in room MED 314. I have received report from ILENE Fitzpatrick and had the opportunity to ask questions and assume patient care.
[2019-07-16 06:57] LABS: TOTAL CELLS COUNTED 100
[2019-07-16 06:58] LABS: ANISOCYTOSIS 2+; HYPOCHROMASIA 1+; PLATELET ESTIMATE NORMAL; TOXIC GRANULATION 1+
[2019-07-16] MEDS: lactobacillus rhamnosus 10,000 MMU CELLS/CAPSULE PO SCH (08:19)
[2019-07-16] MEDS: pregabalin 75mg capsule PO SCH (08:19)
[2019-07-16] MEDS: phenytoin sod ER 100mg capsule PO SCH (08:19)
[2019-07-16 11:00] VITALS: BP 101/77
[2019-07-16] MEDS: cefazolin/dext.iso 2gm/100ml 100 ML IV SCH (12:41)
[2019-07-16] MEDS ORDERED: CEPH-572 PO (14:03)
[2019-07-16] MEDS ORDERED: LACT1CAP26 PO (14:03)
[2019-07-16 15:00] VITALS: BP 140/69
--- NOTE | 2019-07-16 17:21 | NUR ---
pt. discharged from facility at 1645. pt. IV was d/c intact. pt. was given all paperwork, understood it and signed it. pt. new medications were delivered via [facility] before leaving. pt. friend came to pick him up and he was wheeled out to their car via wheelchair. pt. left with all belongings.
== END 2019-07-16 16:55 | disposition home or self-care (01) | DRG 871 ==
LOC: ER 18:01 → CICU 2S 21:28 → CMPBEDREQ 21:37 → MED 3N 07-12 14:32
PROVIDERS: ADMIT Internal Medicine Critical Care Medicine; ATTEND Internal Medicine Critical Care Medicine
PROC: 30233N1 Transfusion of Nonautologous Red Blood Cells into Peripheral Vein, Percutaneous Approach (ICD-10-PCS; principal; 2019-07-09)
PROC: B4121ZZ Fluoroscopy of Hepatic Artery using Low Osmolar Contrast (ICD-10-PCS; 2019-07-10)
PROC: B4141ZZ Fluoroscopy of Superior Mesenteric Artery using Low Osmolar Contrast (ICD-10-PCS; 2019-07-10)
PROC: B41B1ZZ Fluoroscopy of Other Intra-Abdominal Arteries using Low Osmolar Contrast (ICD-10-PCS; 2019-07-10)
PROC: 04L23DZ Occlusion of Gastric Artery with Intraluminal Device, Percutaneous Approach (ICD-10-PCS; 2019-07-10)
DX: A41.01 Sepsis due to Methicillin susceptible Staphylococcus aureus (principal); I21.4 Non-ST elevation (NSTEMI) myocardial infarction; K66.1 Hemoperitoneum; E87.2 Acidosis; D64.9 Anemia, unspecified; I25.10 Atherosclerotic heart disease of native coronary artery without angina pectoris; R29.6 Repeated falls; G89.29 Other chronic pain; M19.90 Unspecified osteoarthritis, unspecified site; M54.9 Dorsalgia, unspecified; Z80.9 Family history of malignant neoplasm, unspecified; Z83.3 Family history of diabetes mellitus; Z79.899 Other long term (current) drug therapy
CPT/HCPCS: 36218; 36245; 36415; 37244; 71045; 71250; 74176; 75726; 76937; 80053; 80185; 81001; 82570; 82810; 82948; 83605; 83735; 83880; 84100; 84145; 84300; 84443; 84484; 85025; 85027; 85610; 85730; 86885; 86900; 86901; 86920; 87040; 87077; 87081; 87186; 87207; 93005; 93306; 96365; 96366; 96367; 96375; 97110; 97116; 97162; 97530; 99152; 99153; 99291; A6213; C1760; C1769; C1894; G0378; J1170; J1644; J1940; J2250; J2543; J3010; J3370; J3475; J3490; J7030; J7050; P9016; Q9963; Q9967

== ENCOUNTER 2019-12-06 06:55 | Observation (INO) | payer MEDICARE, MEDICAID ==
[~2019-12-06] VITALS: Ht 180.3 cm; Wt 73.9 kg
[~2019-12-06 06:55] MED LIST changes: -BACL20TA PO; -CALC-729 PO; -CELE-193 PO; -CHOL10002 PO; -DOCU-148 PO; -HYDR-3968 PO; +LACT1CAP26 PO; +PREG150C PO; -PREG50CA PO
[2019-12-06 07:35] LABS: BASOPHILS % (AUTO) 0.7 % (0-1); EOSINOPHILS # (AUTO) 0.4 X10'3 (0-0.9); EOSINOPHILS % (AUTO) 7.9 % (0-6); HEMATOCRIT 36.1 % (42.0-52.0); HEMOGLOBIN 11.9 g/dl (14.0-17.9); MEAN CORPUSCULAR HEMOGLOBIN 30.6 PG (27.0-31.0); MEAN CORPUSCULAR VOLUME 92.6 FL (78-98); MEAN PLATELET VOLUME 6.9 FL (7.4-10.4); MONOCYTES # (AUTO) 0.4 X10'3 (0-0.9); MONOCYTES % (AUTO) 8.6 % (2-12); NEUTROPHILS # (AUTO) 2.1 X10'3 (1.8-7.7); NEUTROPHILS % (AUTO) 41.8 % (42-75); PLATELET COUNT 252 X10'3 (140-440); RED CELL DISTRIBUTION WIDTH 21.7 % (11.5-14.5)
[2019-12-06 07:46] LABS: D-DIMER 1.77 MG/L FEU (0-0.50); PARTIAL THROMBOPLASTIN TIME 27 SECONDS (22-32)
[2019-12-06 07:51] LABS: ALANINE AMINOTRANSFERASE 16 U/L (12-78); ALBUMIN 3.6 G/DL (3.4-5.0); ALKALINE PHOSPHATASE 95 IU/L (46-116); ANION GAP 12 (8-16); ASPARTATE AMINO TRANSFERASE 16 U/L (10-37); BILIRUBIN,TOTAL 0.4 MG/DL (0.1-1.0); BLOOD UREA NITROGEN 13 MG/DL (7-18); BUN/CREATININE RATIO 11.1 (5.4-32.0); CALCIUM 8.3 MG/DL (8.5-10.1); CHLORIDE 108 MMOL/L (99-107); CREATININE 1.17 MG/DL (0.60-1.10); GLUCOSE 135 MG/DL (70-104); POTASSIUM 4.3 MMOL/L (3.5-5.1); SODIUM 143 MMOL/L (135-145); TOTAL PROTEIN 7.2 G/DL (6.4-8.2); eGFR 60 ML/MIN
[2019-12-06 07:57] LABS: MAGNESIUM 2.1 MG/DL (1.5-2.4)
[2019-12-06] MEDS ORDERED: apixaban 5mg tablet PO SCH (08:20)
[2019-12-06 08:28] LABS: ANISOCYTOSIS 3+; PLATELET ESTIMATE NORMAL; POLYCHROMASIA 1+
[2019-12-06] MEDS ORDERED: mag hydrox/Alum hydrox/simeth 30ml oral suspension PO PRN (08:50)
[2019-12-06] MEDS ORDERED: magnesium hydroxide 30ml (MOM) UD suspension PO PRN (08:50)
[2019-12-06] MEDS ORDERED: ondansetron/PF 4mg/2ml inj IV PRN (08:50)
[2019-12-06] MEDS ORDERED: morphine 2 MG/ML inj. syringe IV PRN ×2 (08:50)
[2019-12-06] MEDS ORDERED: acetaminophen 325mg tablet PO PRN ×2 (08:50)
[2019-12-06] MEDS ORDERED: NAPR-56 PO (08:56)
[2019-12-06] MEDS ORDERED: TIZA4TAB11 PO (08:56)
[2019-12-06] MEDS ORDERED: CLOP75TA35 PO (08:59)
[2019-12-06 10:05] VITALS: BP 145/74
--- NOTE | 2019-12-06 10:05 | NUR ---
Patient in room ORTHO 4015. I have received report from ANNETTE ODOM and had the opportunity to ask questions and assume patient care.
[2019-12-06] MEDS ORDERED: APIX5TAB3 PO (13:10)
--- NOTE | 2019-12-06 14:02 | NUR ---
PAGER ID: [phone] MESSAGE: [id number] RE: KELI [id number] DC STATES TO CONTINUE PLAVIX AND DC NAPROXEN (TAKES FOR PAIN). CAN HE TAKE SOMETHING ELSE?
[2019-12-06] MEDS ORDERED: TRAM50TA2 PO (14:21)
[2019-12-07] MEDS ORDERED: FLU VACC QS2019-20 36MOS UP/PF 60 MCG/0.5 ML SYRINGE IMVAC ONE (10:00)
[2019-12-09 13:09] LABS: ANTITHROMBIN ACTIVITY 106 % (75-135); ANTITHROMBIN ANTIGEN 102 % (72-124); PROTEIN S, FREE 104 % (57-157); PROTEIN S, TOTAL 101 % (60-150)
--- NOTE | 2019-12-09 15:23 | NUR ---
Case Management DC follow up: spoke to pt via telephone. Reports that he is feeling alright, getting better. Pt has followed up w/PCP/Thomas and relayed that he still "feels a little weak". PCP cut dosage of Eliquis in half. pt has Rx for Tramadol for pain and states it is effective, "not as good as [place], but it does the job". Denies SOB, resp distress, cp, emergent general pain, NV, dizziness at this time. PCP referred pt to Dr Valencia/ramin tomorrow 12/10/2019. Pt verbalizes understanding of meds and why prescribed, taking as ordered. pt acknowledges the s/s that would warrant an ER visit for further evaluation. All needs met, questions answered at DC. No further questions at this time.
== END 2019-12-06 14:45 | disposition home or self-care (01) ==
LOC: ER 06:55 → ED HOLD 08:47 → ORTHO 4S 10:05
PROVIDERS: ADMIT Internal Medicine; ATTEND Internal Medicine
DX: I82.401 Acute embolism and thrombosis of unspecified deep veins of right lower extremity (principal); I25.2 Old myocardial infarction; Z86.69 Personal history of other diseases of the nervous system and sense organs; Z87.891 Personal history of nicotine dependence; Z79.02 Long term (current) use of antithrombotics/antiplatelets; Z79.01 Long term (current) use of anticoagulants; Z79.899 Other long term (current) drug therapy
CPT/HCPCS: 36415; 71045; 80053; 81479; 83735; 83880; 83891; 83894; 83898; 84484; 85025; 85300; 85301; 85303; 85305; 85306; 85379; 85610; 85730; 86146; 86147; 87081; 93005; 96374; 99284; G0378; J2270

== ENCOUNTER 2020-07-15 09:48 | Emergency (ER) | payer MEDICARE, MEDICAID ==
[~2020-07-15] VITALS: Ht 180.3 cm; Wt 86.0 kg
[~2020-07-15 09:48] MED LIST changes: +APIX5TAB3 PO; +CLOP75TA35 PO; -LACT1CAP26 PO; +TIZA4TAB11 PO
[2020-07-15 11:24] LABS: BASOPHILS % (AUTO) 0.3 % (0-1); EOSINOPHILS # (AUTO) 0.1 X10'3 (0-0.9); EOSINOPHILS % (AUTO) 1.7 % (0-6); HEMATOCRIT 31.6 % (42.0-52.0); HEMOGLOBIN 10.7 g/dl (14.0-17.9); LYMPHOCYTES # (AUTO) 0.9 X10'3 (1.1-4.8); LYMPHOCYTES % (AUTO) 21.1 % (21-51); MEAN CORPUSCULAR HEMOGLOBIN 38.2 PG (27.0-31.0); MEAN CORPUSCULAR HGB CONC 33.9 g/dL (33.0-36.5); MEAN CORPUSCULAR VOLUME 112.6 FL (78-98); MONOCYTES # (AUTO) 0.3 X10'3 (0-0.9); NEUTROPHILS # (AUTO) 2.8 X10'3 (1.8-7.7); NEUTROPHILS % (AUTO) 68.9 % (42-75); PLATELET COUNT 181 X10'3 (140-440); RED CELL DISTRIBUTION WIDTH 16.5 % (11.5-14.5); WHITE BLOOD COUNT 4.1 X10'3 (4.5-11.0)
[2020-07-15 11:32] LABS: ALANINE AMINOTRANSFERASE 14 U/L (12-78); ALBUMIN 3.9 G/DL (3.4-5.0); ALBUMIN/GLOBULIN RATIO 1.1 (1.1-1.5); ALKALINE PHOSPHATASE 74 IU/L (46-116); ANION GAP 11 (8-16); ASPARTATE AMINO TRANSFERASE 17 U/L (10-37); BILIRUBIN,TOTAL 0.6 MG/DL (0.1-1.0); BLOOD UREA NITROGEN 15 MG/DL (7-18); CALCIUM 8.7 MG/DL (8.5-10.1); CHLORIDE 108 MMOL/L (99-107); GLUCOSE 126 MG/DL (70-104); POTASSIUM 3.8 MMOL/L (3.5-5.1); SODIUM 141 MMOL/L (135-145); TOTAL CARBON DIOXIDE 22.4 MMOL/L (24-32); TOTAL PROTEIN 7.4 G/DL (6.4-8.2); eGFR 72 ML/MIN
[2020-07-15 12:06] LABS: ANISOCYTOSIS 1+; PLATELET ESTIMATE NORMAL
[2020-07-15 12:08] LABS: SCHISTOCYTES FEW
[2020-07-15 12:25] LABS: CLARITY,URINE CLEAR (Clear); COLOR,URINE YELLOW (Yellow); GLUCOSE, URINE NEGATIVE (Neg); KETONES,URINE NEGATIVE (Neg); LEUKOCYTE ESTERASE ,URINE NEGATIVE (Neg); NITRITES, URINE NEGATIVE (Neg); OCCULT BLOOD,URINE TRACE-LYSED (Neg); PROTEIN,URINE NEGATIVE (Neg); UROBILINOGEN,URINE 0.2 E.U/dL (0.2-1.0)
[2020-07-15 12:32] LABS: UA COLLECTION TYPE CLN CATCH MIDSTREAM
[2020-07-15 12:34] LABS: BACTERIA,URINE FEW /HPF (Neg); MUCUS STRANDS NONE SEEN /LPF (Neg); RBC,URINE 0-2 /HPF (0-2); SQUAMOUS EPITHELIAL CELL,UR FEW /LPF (FEW)
[2020-07-15] MEDS ORDERED: CEPH-572 PO (12:43)
[2020-07-15 13:41] VITALS: BP 138/88
== END 2020-07-15 13:12 | disposition home or self-care (01) ==
LOC: ER 09:49
DX: D53.9 Nutritional anemia, unspecified (principal); N39.0 Urinary tract infection, site not specified; F12.90 Cannabis use, unspecified, uncomplicated; Z86.69 Personal history of other diseases of the nervous system and sense organs; Z86.718 Personal history of other venous thrombosis and embolism; Z98.890 Other specified postprocedural states; Z79.01 Long term (current) use of anticoagulants; Z79.899 Other long term (current) drug therapy
CPT/HCPCS: 36415; 71045; 80053; 81001; 82948; 85008; 85025; 87088; 93005; 99285